=== PATIENT | female | born 1995 | race African-American/Black ===

== ENCOUNTER → 2016-11-20 | Outpatient (REF) | LOC: WSOH 09:44 → WSPT 11:15 | DX: Z02.1 Encounter for pre-employment examination (principal) ==

== ENCOUNTER → 2016-11-22 | Outpatient (REF) | LOC: WSOH 14:15 | DX: Z02.89 Encounter for other administrative examinations (principal) ==

== ENCOUNTER → 2016-11-22 | Outpatient (REF) | LOC: WSOH 13:40 | DX: Z23 Encounter for immunization (principal) ==

== ENCOUNTER → 2018-02-12 | Outpatient (CLI) | payer OTHER | LOC: COL.RAD 14:46 | DX: E04.9 Nontoxic goiter, unspecified (principal) ==